=== PATIENT | female | born 1985 | race Caucasian/White ===

== ENCOUNTER 2016-12-22 11:19 | Outpatient (CLI) | payer OTHER ==
--- NOTE | 2016-12-23 06:50 | Ultrasound Report ---
OB FOLLOWUP: 12/22/2016 CLINICAL INDICATION: Post dates. TECHNIQUE: Real-time scanning was performed with independent sales representative static images obtained. LAST MENSTRUAL PERIOD 03/14/2016 Clinical Age 40 weeks 3 days US Age 38 weeks 2 days EFW Hadlock 3401 g EFW% Hadlock 28% Heart Rate 148 bmp EDC 12/19/2016 US EDC 01/03/2017 BPD Hadlock 37 weeks 5 days; mean mm 92.7 HC Hadlock 39 weeks 2 days; mean mm 341.3 AC Hadlock 38 weeks 0 days; mean mm 340.8 FL Hadlock 38 weeks 0 days; mean mm 74.4 Presentation Cephalic Placental Location Posterior Cervical Length --- Amniotic Fluid 12.0; 5-50% FINDINGS: There is a single viable intrauterine gestation, in cephalic presentation. heart rate is 148 BPM. The placenta is posterior, without evidence of previa. Amniotic fluid volume is normal, with an VALERIE of 12.0. By size, the fetus measures 38.3 weeks (40.5 weeks by LMP). Estimated weight by Hadlock method is 3401 grams (28th percentile). No free fluid or adnexal lesion is appreciated. IMPRESSION: SINGLE VIABLE INTRAUTERINE GESTATION, MEASURING 2 WEEKS SMALLER THAN EXPECTED BY LMP DATING. ESTIMATED WEIGHT OF 3401 GRAMS. NORMAL VALERIE. MTDD
== END 2016-12-22 11:20 | disposition home or self-care (01) ==
LOC: DI 11:19
PROVIDERS: ATTEND Midwife
DX: O48.0 Post-term pregnancy (principal); Z3A.39 39 weeks gestation of pregnancy
CPT/HCPCS: 76816